=== PATIENT | male | born 1955 | race American Indian/Alaskan Native ===

== ENCOUNTER 2018-03-28 11:48 | Emergency (ER) | payer OTHER ==
--- NOTE | 2018-03-28 12:59 | Emergency Department Report ---
ED Neuro Deficit HPI - General Chief Complaint: Extremity Problem,Nontraumatic Stated Complaint: NUMBNESS/RIGHT SIDE Time Seen by Provider: 03/28/18 12:48 Source: patient Mode of arrival: Ambulatory Limitations: No Limitations - History of Present Illness Initial Comments: Patient is a 63-year-old [place] male who states that he's had some numbness and tingling to his right first through third digits for approximately 1 month. Patient states that approximately 2 months ago he did injure his shoulder but did not have the scene about. Patient is having progressively worsening numbness in the distribution above. Patient states there is no pain there is no weakness he feels a numb pins and needle sensation as though his arm was cold and even though it is not. - Related Data Home Medications: Previous Rx's Medication Instructions Recorded Last Taken Type methOCARBAMOL [Robaxin TAB] 500 mg PO Q6H PRN #15 tablet 03/28/18 Unknown Rx predniSONE [Deltasone] 20 mg PO QDAY #5 tab 03/28/18 Unknown Rx Allergies/Adverse Reactions: Allergies Allergy/AdvReac Type Severity Reaction Status Date / Time ibuprofen [From Motrin] AdvReac Shortness Verified 09/03/16 15:05 of Breath ED Review of Systems ROS: Stated complaint: NUMBNESS/RIGHT SIDE Other details as noted in HPI Comment: All other systems reviewed and negative ED Past Medical Hx - Past Medical History Previous Medical History?: Yes Hx Hypertension: Yes Hx Arthritis: Yes - Surgical History Past Surgical History?: Yes Additional Surgical History: Lymph Node - leg - Social History Smoking Status: Current Every Day Smoker Substance Use Type: Alcohol, Marijuana - Medications Home Medications: Home Medications Medication Instructions Recorded Confirmed Last Taken Type methOCARBAMOL [Robaxin TAB] 500 mg PO Q6H PRN #15 tablet 03/28/18 Unknown Rx predniSONE [Deltasone] 20 mg PO QDAY #5 tab 03/28/18 Unknown Rx ED Neuro Physical Exam - General Limitations: No Limitations General appearance: alert, in no apparent distress Suspected Stroke: No - Head Head exam: Present: atraumatic, normocephalic - Eye Eye exam: Present: normal appearance - ENT ENT exam: Present: mucous membranes moist - Neck Neck exam: Present: normal inspection - Respiratory Respiratory exam: Present: normal lung sounds bilaterally. Absent: respiratory distress - Cardiovascular Cardiovascular Exam: Present: regular rate, normal rhythm. Absent: systolic murmur, diastolic murmur, rubs, gallop - GI/Abdominal GI/Abdominal exam: Present: soft, normal bowel sounds - Rectal Rectal exam: Present: deferred - Extremities Exam Extremities exam: Present: normal inspection, other (patient's right upper extremity shows no physical abnormality. As a bounding pulse in the radial area. There is full range of motion to his hand wrist and shoulder.) - Back Exam Back exam: Present: normal inspection - Neurological Exam Neurological exam: Present: alert, oriented X3, CN II-XII intact, normal gait. Absent: motor sensory deficit - Psychiatric Psychiatric exam: Present: normal affect, normal mood - Skin Skin exam: Present: warm, dry, intact, normal color. Absent: rash ED Course Vital Signs 03/28/18 11:54 Temperature 98.6 F Pulse Rate 62 Respiratory 18 Rate Blood Pressure 168/90 O2 Sat by Pulse 97 Oximetry - Medical Decision Making Patient be started on anti-inflammatories for radiculopathy and will be discharged home with follow-up with orthopedics. Critical care attestation.: If time is entered above; I have spent that time in minutes in the direct care of this critically ill patient, excluding procedure time. ED Disposition Clinical Impression: Cervical radiculopathy Disposition: DC-01 TO HOME OR SELFCARE Is pt being admited?: No Does the pt Need Aspirin: No Condition: Stable Instructions: Cervical Radiculopathy (ED) Referrals: JAMIA BOUCHER MD [Staff Physician] - 3-5 Days
[2018-03-28 13:08] VITALS: BP 122/72
== END 2018-03-28 13:06 | disposition home or self-care (01) ==
LOC: ED 11:48
DX: M54.12 Radiculopathy, cervical region (principal); I10 Essential (primary) hypertension; M19.90 Unspecified osteoarthritis, unspecified site; F17.200 Nicotine dependence, unspecified, uncomplicated; F12.10 Cannabis abuse, uncomplicated; Z88.6 Allergy status to analgesic agent
CPT/HCPCS: 99282

== ENCOUNTER 2020-12-10 16:10 | Observation (INO) | payer MEDICARE, OTHER ==
[2020-12-10] MEDS ORDERED: SODIUM CHLORIDE 0.9% 500 ML 500 ML IV ONE (16:51)
--- NOTE | 2020-12-10 16:56 | Emergency Department Report ---
ED Syncope HPI - General Chief Complaint: Syncope Stated Complaint: SYNCOPE Time Seen by Provider: 12/10/20 16:33 Source: EMS Exam Limitations: other - History of Present Illness Initial Comments: 65-year-old male with a past medical history with arthritis, dementia, hypertension presents to the hospital with complaints of syncope versus seizure after smoking marijuana at home with family. Patient apparently was smoking marijuana, became unresponsive, had "convulsions", and CPR was initiated by family members. Upon EMS arrival patient was responsive but lethargic. He is currently responsive but lethargic and oriented to self only which appears to be his baseline secondary to dementia. He is not oriented to place or year. He denies any pain. He states he does not smoke marijuana daily. Family reported to EMS that he had a similar response to smoking marijuana over . Patient denies alcohol or other drug abuse. - Related Data Allergies/Adverse Reactions: Allergies ibuprofen [From Motrin] Adverse Reaction (Verified 12/10/20 16:14) Shortness of Breath Home Medications: Ambulatory Orders methOCARBAMOL [Robaxin TAB] 500 mg PO Q6H PRN #15 tablet 03/28/18 predniSONE [Deltasone] 20 mg PO QDAY #5 tab 03/28/18 Amoxicillin/Potassium Clav [Augmentin 875-125 Tablet] 1 each PO BID #20 tablet 07/19/18 Chlorhexidine Mouthwash [Peridex] 15 ml MM BID #1 bottle 07/19/18 Lidocaine Viscous 2% 5 ml MM Q3H PRN #120 udc 07/19/18 ED Review of Systems ROS: Stated complaint: SYNCOPE Other details as noted in HPI Comment: All other systems reviewed and negative ED Past Medical Hx - Past Medical History Hx Hypertension: Yes Hx Arthritis: Yes Hx Dementia: Yes - Surgical History Additional Surgical History: Lymph Node - leg - Social History Smoking Status: Unknown if ever smoked Substance Use Type: Marijuana - Medications Home Medications: Home Medications Medication Instructions Recorded Confirmed Last Taken Type methOCARBAMOL [Robaxin TAB] 500 mg PO Q6H PRN #15 tablet 03/28/18 Unknown Rx predniSONE [Deltasone] 20 mg PO QDAY #5 tab 03/28/18 Unknown Rx Amoxicillin/Potassium Clav 1 each PO BID #20 tablet 07/19/18 Unknown Rx [Augmentin 875-125 Tablet] Chlorhexidine Mouthwash [Peridex] 15 ml MM BID #1 bottle 07/19/18 Unknown Rx Lidocaine Viscous 2% 5 ml MM Q3H PRN #120 udc 07/19/18 Unknown Rx ED Physical Exam - General Limitations: Physical Limitation - Other Other exam information: General: No acute distress Head: Atraumatic Eyes: normal appearance, pupils equal reactive to light ENT: Moist mucous membranes Neck: Normal appearance, no midline tenderness Chest: Clear to auscultation bilaterally CV: Regular rate and rhythm Abdomen: Soft, normal bowel sounds, nontender, nondistended, no rebound or guarding Back: Normal inspection Extremity: Normal inspection, full range of motion Neuro: Lethargic but arousable to tactile stimulation O x 1 (typically only oriented to self as per family/EMS) no facial asymmetry, speech clear, no gross motor sensory deficit, [id number] function intact Psych: Appropriate behavior Skin: No rash ED Course Vital Signs 12/10/20 12/10/20 12/10/20 16:40 17:01 17:31 Temperature 97.8 F Pulse Rate 52 L 53 L 50 L Respiratory 14 13 12 Rate Blood Pressure 106/69 132/75 Blood Pressure 106/69 [Right] O2 Sat by Pulse 97 94 97 Oximetry 12/10/20 17:45 Temperature Pulse Rate 49 L Respiratory 12 Rate Blood Pressure 131/75 Blood Pressure [Right] O2 Sat by Pulse 96 Oximetry ED Medical Decision Making - Lab Data Result diagrams: 12/10/20 16:59 12/10/20 16:59 Lab Results 12/10/20 12/10/20 12/10/20 Range/Units 16:59 16:59 16:59 WBC 10.7 (4.5-11.0) K/mm3 RBC 4.35 (3.65-5.03) M/mm3 Hgb 12.4 (11.8-15.2) gm/dl Hct 37.3 (35.5-45.6) % MCV 86 (84-94) fl MCH 29 (28-32) pg MCHC 33 (32-34) % RDW 14.6 (13.2-15.2) % Plt Count 221 (140-440) K/mm3 Lymph % (Auto) 28.0 (13.4-35.0) % [place] % (Auto) 5.7 (0.0-7.3) % Eos % (Auto) 2.2 (0.0-4.3) % Baso % (Auto) 0.7 (0.0-1.8) % Lymph # (Auto) 3.0 (1.2-5.4) K/mm3 [place] # (Auto) 0.6 (0.0-0.8) K/mm3 Eos # (Auto) 0.2 (0.0-0.4) K/mm3 Baso # (Auto) 0.1 (0.0-0.1) K/mm3 Seg Neutrophils % 63.4 (40.0-70.0) % Seg Neutrophils # 6.8 (1.8-7.7) K/mm3 PT 12.7 (12.2-14.9) Sec. INR 0.97 (0.87-1.13) Sodium 140 (137-145) mmol/L Potassium 4.2 (3.6-5.0) mmol/L Chloride 101.6 (98-107) mmol/L Carbon Dioxide 29 (22-30) mmol/L Anion Gap 14 mmol/L BUN 10 (9-20) mg/dL Creatinine 1.1 (0.8-1.3) mg/dL Estimated GFR > 60 ml/min BUN/Creatinine Ratio 9 % Glucose 115 H (75-100) mg/dL Calcium 9.0 (8.4-10.2) mg/dL Magnesium 1.90 (1.7-2.3) mg/dL Troponin T < 0.010 (0.00-0.029) ng/mL Plasma/Serum Alcohol (0-0.07) % 12/10/ Range/Units 16:59 WBC (4.5-11.0) K/mm3 RBC (3.65-5.03) M/mm3 Hgb (11.8-15.2) gm/dl Hct (35.5-45.6) % MCV (84-94) fl MCH (28-32) pg MCHC (32-34) % RDW (13.2-15.2) % Plt Count (140-440) K/mm3 Lymph % (Auto) (13.4-35.0) % [place] % (Auto) (0.0-7.3) % Eos % (Auto) (0.0-4.3) % Baso % (Auto) (0.0-1.8) % Lymph # (Auto) (1.2-5.4) K/mm3 [place] # (Auto) (0.0-0.8) K/mm3 Eos # (Auto) (0.0-0.4) K/mm3 Baso # (Auto) (0.0-0.1) K/mm3 Seg Neutrophils % (40.0-70.0) % Seg Neutrophils # (1.8-7.7) K/mm3 PT (12.2-14.9) Sec. INR (0.87-1.13) Sodium (137-145) mmol/L Potassium (3.6-5.0) mmol/L Chloride (98-107) mmol/L Carbon Dioxide (22-30) mmol/L Anion Gap mmol/L BUN (9-20) mg/dL Creatinine (0.8-1.3) mg/dL Estimated GFR ml/min BUN/Creatinine Ratio % Glucose (75-100) mg/dL Calcium (8.4-10.2) mg/dL Magnesium (1.7-2.3) mg/dL Troponin T (0.00-0.029) ng/mL Plasma/Serum Alcohol < 0.01 (0-0.07) % - EKG Data -: EKG Interpreted by Me (lvh) EKG shows normal: sinus rhythm, ST-T waves (no stemi) Rate: bradycardia (54) - Radiology Data Radiology results: report reviewed CT head: No acute finding Chest x-ray: No acute findings - Medical Decision Making 65-year-old male presents to the hospital with syncope versus seizure after smoking marijuana. EKG reveals bradycardia without ST elevation ID. Labs unremarkable. Urine collection pending at disposition. Patient remains lethargic versus exhibiting signs of marijuana high in the ED but otherwise in no acute distress Critical Care Time: No Critical care attestation.: If time is entered above; I have spent that time in minutes in the direct care of this critically ill patient, excluding procedure time. ED Disposition Clinical Impression: Syncope, Marijuana use, Dementia, Bradycardia Disposition: OP ADMIT IP TO THIS HOSP Is pt being admited?: Yes Condition: Stable Instructions: Syncope (ED) Time of Disposition: 18:28 (Dr. Aiken/[facility])
--- NOTE | 2020-12-10 17:23 | XRay Report ---
CHEST 1 VIEW INDICATION: syncope vs seizure. COMPARISON: None. FINDINGS: Support devices: None. Heart: Normal. Lungs/Pleura: No acute pulmonary or pleural findings. IMPRESSION: 1. No acute findings. Signer Name: Graham Jaffe MD Signed: 12/10/2020 5:18 PM Workstation Name: [id number]
--- NOTE | 2020-12-10 17:34 | Cat Scan Report ---
CT BRAIN: 12/10/2020 INDICATION / CLINICAL INFORMATION: syncope vs seizure. COMPARISON: None available. FINDINGS: BRAIN/INTRACRANIAL STRUCTURES: Unenhanced CT images of the brain demonstrate no evidence of acute abn ormality. Ventricles and sulci are prominent in size, consistent with diffuse cerebral atrophy. Extensive chronic white matter hypoattenuation is present throughout the cerebral hemispheric white m atter, consistent with prominent chronic small vessel ischemic change. There is evidence of old lacunar changes in the right basal ganglia. There is no evidence of hemorrhage or mass. There are no abnormal extra-axial fluid collections. EXTRACRANIAL STRUCTURES: Unremarkable. IMPRESSION: No acute abnormality. Chronic and age-related changes. All CT scans at this location are performed using dose reduction to ALARA by means of automated expos ure control. Signer Name: Preet Her MD Signed: 12/10/2020 5:30 PM Workstation Name: [id number]
[2020-12-10 17:50] LABS: Hematocrit 37.3 % (35.5-45.6); Hemoglobin 12.4 gm/dl (11.8-15.2); Mean Corpuscular Volume 86 fl (84-94); Red Blood Count 4.35 M/mm3 (3.65-5.03)
[2020-12-10 17:51] LABS: Basophils % (Auto) 0.7 % (0.0-1.8); Eosinophils % (Auto) 2.2 % (0.0-4.3); Mean Corpuscular HGB Conc 33 % (32-34); Mean Platelet Volume 8.3 fl (6-12); Monocytes % (Auto) 5.7 % (0.0-7.3); Platelet Count 221 K/mm3 (140-440); Red Cell Distribution Width 14.6 % (13.2-15.2)
[2020-12-10 17:52] LABS: Basophils # (Auto) 0.1 K/mm3 (0.0-0.1); Eosinophils # (Auto) 0.2 K/mm3 (0.0-0.4); Monocytes # (Auto) 0.6 K/mm3 (0.0-0.8)
[2020-12-10 17:57] LABS: BUN/Creatinine Ratio 9; Blood Urea Nitrogen 10 mg/dL (9-20); Hemolysis Index 4
[2020-12-10 17:58] LABS: INR 0.97 (0.87-1.13)
[2020-12-10 20:20] LABS: Bilirubin,Urine NEG (Negative); Blood,Urine NEG (Negative); Color,Urine Yellow (Yellow); Mucus,Urine FEW /HPF; Protein,Urine <15 mg/dL mg/dL (Negative); Urobilinogen,Urine < 2.0 mg/dL (<2.0)
[2020-12-10 20:22] LABS: Amphetamine Screen,Urine Negative; Benzodiazepines Screen,Urine Negative; Cocaine Screen,Urine Negative; Methadone Screen,Urine Negative; Opiate Screen,Urine Negative
[2020-12-10 20:33] LABS: Cannabinoid Screen,Urine Positive
--- NOTE | 2020-12-11 01:06 | History and Physical Report ---
History of Present Illness Date of examination: 12/10/20 Date of admission: 12/10/20 18:29 Chief complaint: Passed out after smoking marijuana this a.m. Possible seizures History of present illness: 65-year-old male with history of hypertension, osteoarthritis and early dementia brought into the hospital for passing out. Family feels that he may have had seizures. Patient was smoking marijuana at home with family. Became unresponsive and disoriented after waking up patient is oriented to self but not oriented to place or year family reports that patient had a similar response while smoking marijuana on gi. - Past Medical History Hx Hypertension: Yes Hx Arthritis: Yes Hx Dementia: Yes - Surgical History Additional Surgical History: Lymph Node - leg - Social History Smoking Status: Unknown if ever smoked Substance Use Type: Marijuana - Medications Home Medications: Home Medications Medication Instructions Recorded Confirmed Last Taken Type methOCARBAMOL [Robaxin TAB] 500 mg PO Q6H PRN #15 tablet 03/28/18 Unknown Rx predniSONE [Deltasone] 20 mg PO QDAY #5 tab 03/28/18 Unknown Rx Amoxicillin/Potassium Clav 1 each PO BID #20 tablet 07/19/18 Unknown Rx [Augmentin 875-125 Tablet] Chlorhexidine Mouthwash [Peridex] 15 ml MM BID #1 bottle 07/19/18 Unknown Rx Lidocaine Viscous 2% 5 ml MM Q3H PRN #120 udc 07/19/18 Unknown Rx Review of Systems ROS: Constitutional no weight loss or weight gain no fever or chills HEENT no sore throat no post nasal drip no diplopia Neck no neck stiffness no lymph gland enlargement Chest and lungs no shortness of breath cough or wheezing CVS no chest pain no diaphoresis no palpitations GI no nausea no vomiting no diarrhea Genitourinary system no dysuria no flank pain Musculoskeletal system no muscle pains no joint pains [employer] passed out with altered sensorium after recovering Skin no rash no itching Psychiatric no depression no homicidal or suicidal tendencies Hematologic no lymphedema or bruising Endocrine no polydipsia no polyuria no cold intolerance no heat intolerance Medications and Allergies Allergies Allergy/AdvReac Type Severity Reaction Status Date / Time ibuprofen [From Motrin] AdvReac Shortness Verified 12/10/20 16:14 of Breath Home Medications Medication Instructions Recorded Confirmed Last Taken Type methOCARBAMOL [Robaxin TAB] 500 mg PO Q6H PRN #15 tablet 03/28/18 Unknown Rx predniSONE [Deltasone] 20 mg PO QDAY #5 tab 03/28/18 Unknown Rx Amoxicillin/Potassium Clav 1 each PO BID #20 tablet 07/19/18 Unknown Rx [Augmentin 875-125 Tablet] Chlorhexidine Mouthwash [Peridex] 15 ml MM BID #1 bottle 07/19/18 Unknown Rx Lidocaine Viscous 2% 5 ml MM Q3H PRN #120 udc 07/19/18 Unknown Rx Exam - Constitutional Vitals: Temp Pulse Resp BP Pulse Ox 98.0 F 57 L 18 188/98 96 12/11/20 00:08 12/11/20 00:08 12/11/20 00:08 12/11/20 00:08 12/11/20 00:08 General appearance: Present: no acute distress, well-nourished - EENT Eyes: Present: PERRL ENT: hearing intact, clear oral mucosa - Neck Neck: Present: supple, normal ROM - Respiratory Respiratory effort: normal Respiratory: bilateral: CTA - Cardiovascular Heart rate: 78 Rhythm: regular Heart Sounds: Present: S1 & S2. Absent: rub, click - Extremities Extremities: pulses symmetrical, No edema Peripheral Pulses: within normal limits - Abdominal General gastrointestinal: Present: soft, non-tender, non-distended, normal bowel sounds Male genitourinary: Present: normal - Rectal Rectal Exam: deferred - Integumentary Integumentary: Present: clear, warm, dry - Musculoskeletal Musculoskeletal: gait normal, strength equal bilaterally - Psychiatric Psychiatric: appropriate mood/affect, intact judgment & insight - Neurologic Neurologic: CNII-XII intact, moves all extremities - Allied Health Allied health notes reviewed: nursing, case management HEART Score - HEART Score History: Moderately suspicious Age: > 65 Risk factors: 1-2 risk factors Troponin: Troponin T < 0.010 ng/mL (0.00-0.029) 12/10/20 16:59 Troponin: 1-3x normal limit - Critical Actions Critical Actions: 4-6 pts:12-16.6% risk of adverse cardiac event. Should be ad mitted Results - Labs CBC & Chem 7: 12/11/20 01:17 12/11/20 01:17 Labs: Laboratory Last Values WBC 10.7 K/mm3 (4.5-11.0) 12/10/20 16:59 RBC 4.35 M/mm3 (3.65-5.03) 12/10/20 16:59 Hgb 12.4 gm/dl (11.8-15.2) 12/10/20 16:59 Hct 37.3 % (35.5-45.6) 12/10/20 16:59 MCV 86 fl (84-94) 12/10/20 16:59 MCH 29 pg (28-32) 12/10/20 16:59 MCHC 33 % (32-34) 12/10/20 16:59 RDW 14.6 % (13.2-15.2) 12/10/20 16:59 Plt Count 221 K/mm3 (140-440) 12/10/20 16:59 Lymph % (Auto) 28.0 % (13.4-35.0) 12/10/20 16:59 [place] % (Auto) 5.7 % (0.0-7.3) 12/10/20 16:59 Eos % (Auto) 2.2 % (0.0-4.3) 12/10/20 16:59 Baso % (Auto) 0.7 % (0.0-1.8) 12/10/20 16:59 Lymph # (Auto) 3.0 K/mm3 (1.2-5.4) 12/10/20 16:59 [place] # (Auto) 0.6 K/mm3 (0.0-0.8) 12/10/20 16:59 Eos # (Auto) 0.2 K/mm3 (0.0-0.4) 12/10/20 16:59 Baso # (Auto) 0.1 K/mm3 (0.0-0.1) 12/10/20 16:59 Seg Neutrophils % 63.4 % (40.0-70.0) 12/10/20 16:59 Seg Neutrophils # 6.8 K/mm3 (1.8-7.7) 12/10/20 16:59 PT 12.7 Sec. (12.2-14.9) 12/10/20 16:59 INR 0.97 (0.87-1.13) 12/10/20 16:59 Sodium 140 mmol/L (137-145) 12/10/20 16:59 Potassium 4.2 mmol/L (3.6-5.0) 12/10/20 16:59 Chloride 101.6 mmol/L (98-107) 12/10/20 16:59 Carbon Dioxide 29 mmol/L (22-30) 12/10/20 16:59 Anion Gap 14 mmol/L 12/10/20 16:59 BUN 10 mg/dL (9-20) 12/10/20 16:59 Creatinine 1.1 mg/dL (0.8-1.3) 12/10/20 16:59 Estimated GFR > 60 ml/min 12/10/20 16:59 BUN/Creatinine Ratio 9 % 12/10/20 16:59 Glucose 115 mg/dL (75-100) H 12/10/20 16:59 Calcium 9.0 mg/dL (8.4-10.2) 12/10/20 16:59 Magnesium 1.90 mg/dL (1.7-2.3) 12/10/20 16:59 Troponin T < 0.010 ng/mL (0.00-0.029) 12/10/20 16:59 Urine Color Yellow (Yellow) 12/10/20 19:59 Urine Turbidity Clear (Clear) 12/10/20 19:59 Urine pH 7.0 (5.0-7.0) 12/10/20 19:59 Ur Specific [place] 1.006 (1.003-1.030) 12/10/20 19:59 Urine Protein <15 mg/dl mg/dL (Negative) 12/10/20 19:59 Urine Glucose (UA) Neg mg/dL (Negative) 12/10/20 19:59 Urine Ketones Neg mg/dL (Negative) 12/10/20 19:59 Urine Blood Neg (Negative) 12/10/20 19:59 Urine Nitrite Neg (Negative) 12/10/20 19:59 Urine Bilirubin Neg (Negative) 12/10/20 19:59 Urine Urobilinogen < 2.0 mg/dL (<2.0) 12/10/20 19:59 Ur Leukocyte Esterase Neg (Negative) 12/10/20 19:59 Urine WBC (Auto) 2.0 /HPF (0.0-6.0) 12/10/20 19:59 Urine RBC (Auto) 1.0 /HPF (0.0-6.0) 12/10/20 19:59 Urine Mucus Few /HPF 12/10/20 19:59 Urine Opiates Screen Negative 12/10/20 19:59 Urine Methadone Screen Negative 12/10/20 19:59 Ur Barbiturates Screen Negative 12/10/20 19:59 Ur Phencyclidine Scrn Negative 12/10/20 19:59 Ur Amphetamines Screen Negative 12/10/20 19:59 U Benzodiazepines Scrn Negative 12/10/20 19:59 Urine Cocaine Screen Negative 12/10/20 19:59 U Marijuana (THC) Screen Positive 12/10/20 19:59 Drugs of Abuse Note Disclamer 12/10/20 19:59 Plasma/Serum Alcohol < 0.01 % (0-0.07) 12/10/20 16:59 - Imaging and Cardiology EKG: report reviewed (Sinus rhythm no acute ST-T wave changes) Imaging and Cardiology: Head CT No acute abnormalities Chronic and age-related changes Chest x-ray No acute findings Assessment and Plan Advance Directives: Yes (Full code) VTE prophylaxis?: Chemical Plan of care discussed with patient/family: Yes - Patient Problems (1) Acute encephalopathy Current Visit: Yes Status: Acute Plan to address problem: Transient in nature Possible drug-induced secondary to marijuana (2) Bradycardia Current Visit: Yes Status: Acute Plan to address problem: Symptomatic Cardiology consulted (3) Autonomic dysfunction Current Visit: Yes Status: Acute Plan to address problem: Probable syncope secondary to marijuana We will get echocardiogram for ejection fraction and carotid duplex scan to rule out any carotid stenosis (4) Hypertension Current Visit: Yes Status: Chronic Qualifiers: Hypertension type: essential hypertension Qualified Code(s): I10 - Essential (primary) hypertension Plan to address problem: Continue antihypertensives (5) Marijuana use Current Visit: Yes Status: Chronic Plan to address problem: Patient counseled (6) DVT prophylaxis Current Visit: Yes Status: Acute Plan to address problem: On heparin GI prophylaxis
[2020-12-11] MEDS ORDERED: METOCLOPRAMIDE 10 MG/2 ML INJ IV PRN (01:09)
[2020-12-11] MEDS ORDERED: oxyCODONE /ACETAMINOPHEN 5-325MG TAB PO PRN (01:09)
[2020-12-11] MEDS ORDERED: ONDANSETRON 4 MG/2 ML INJ IV PRN (01:09)
[2020-12-11] MEDS ORDERED: ACETAMINOPHEN 325 MG TAB PO PRN (01:09)
[2020-12-11] MEDS ORDERED: MORPHINE 2 MG/1 ML INJ IV PRN (01:09)
[2020-12-11] MEDS ORDERED: SODIUM CHLORIDE 0.9% 1000 ML 1,000 ML IV SCH (01:15)
[2020-12-11] MEDS: hydrALAZINE 20 MG/1 ML INJ IV PRN ×2 (01:41→09:14)
[2020-12-11 01:51] LABS: Basophils # (Auto) 0.1 K/mm3 (0.0-0.1); Eosinophils # (Auto) 0.1 K/mm3 (0.0-0.4); Eosinophils % (Auto) 0.8 % (0.0-4.3); Hematocrit 36.9 % (35.5-45.6); Hemoglobin 12.2 gm/dl (11.8-15.2); Lymphocytes # (Auto) 3.2 K/mm3 (1.2-5.4); Lymphocytes % (Auto) 26.9 % (13.4-35.0); Mean Corpuscular HGB Conc 33 % (32-34); Mean Corpuscular Volume 85 fl (84-94); Monocytes # (Auto) 0.8 K/mm3 (0.0-0.8); Monocytes % (Auto) 6.5 % (0.0-7.3); Platelet Count 208 K/mm3 (140-440); Red Blood Count 4.32 M/mm3 (3.65-5.03); Red Cell Distribution Width 14.6 % (13.2-15.2)
[2020-12-11 02:14] LABS: Alanine Aminotransferase 5 units/L (7-56); Albumin 3.7 g/dL (3.9-5); BUN/Creatinine Ratio 13; Blood Urea Nitrogen 10 mg/dL (9-20); Calcium 8.7 mg/dL (8.4-10.2); Hemolysis Index 2
--- NOTE | 2020-12-11 08:50 | Progress Note ---
Assessment and Plan Assessment and plan: --Symptomatic bradycardia; Patient had heart rate ranging between 49-59 intermittently since admission Patient was admitted with syncopal episode, not on any AV belgica blocking agents Closely monitor, cardiology consulted Follow echocardiogram --History of syncopal episode/autonomic dysfunction Versus marijuana related Fall precautions, syncope work-up in progress Follow carotid Doppler, echocardiogram Patient will be advised to follow neurologist as outpatient --Hypertension; moderate control Continue current antihypertensives, avoid beta-blockers --History of substance abuse/marijuana. Strongly advised to quit recreational drug use --DVT prophylaxis; Heparin We will closely monitor the patient and adjust management as needed Physical therapy evaluation and treatment Follow cardiology recommendations Possible discharge a.m. if stable History Interval history: Patient was admitted with syncopal episode, reports after he had marijuana Syncope work-up is in progress No new episodes of syncope since admission Patient feels better No new complaints Vital signs reviewed Hospitalist Physical - Constitutional Vitals: Temp Pulse Resp BP Pulse Ox 98.4 F 71 18 171/99 95 12/11/20 03:12 12/11/20 03:12 12/11/20 03:12 12/11/20 03:12 12/11/20 03:12 General appearance: Present: no acute distress, well-nourished - EENT Eyes: Present: PERRL, EOM intact - Neck Neck: Present: supple, normal ROM - Respiratory Respiratory effort: normal Respiratory: bilateral: diminished, negative: rales, rhonchi, wheezing - Cardiovascular Rhythm: regular Heart Sounds: Present: S1 & S2 - Extremities Extremities: no ischemia, No edema - Abdominal General gastrointestinal: soft, non-tender, non-distended, normal bowel sounds - Integumentary Integumentary: Present: clear, warm - Psychiatric Psychiatric: appropriate mood/affect, cooperative - Neurologic Neurologic: CNII-XII intact, moves all extremities HEART Score - HEART Score Age: > 65 Risk factors: 1-2 risk factors Troponin: Troponin T < 0.010 ng/mL (0.00-0.029) 12/10/20 16:59 Troponin: 1-3x normal limit - Critical Actions Critical Actions: 4-6 pts:12-16.6% risk of adverse cardiac event. Should be admitted Results - Labs CBC & Chem 7: 12/11/20 01:17 12/11/20 01:17 Labs: Laboratory Last Values WBC 11.8 K/mm3 (4.5-11.0) H 12/11/20 01:17 RBC 4.32 M/mm3 (3.65-5.03) 12/11/20 01:17 Hgb 12.2 gm/dl (11.8-15.2) 12/11/20 01:17 Hct 36.9 % (35.5-45.6) 12/11/20 01:17 MCV 85 fl (84-94) 12/11/20 01:17 MCH 28 pg (28-32) 12/11/20 01:17 MCHC 33 % (32-34) 12/11/20 01:17 RDW 14.6 % (13.2-15.2) 12/11/20 01:17 Plt Count 208 K/mm3 (140-440) 12/11/20 01:17 Lymph % (Auto) 26.9 % (13.4-35.0) 12/11/20 01:17 [place] % (Auto) 6.5 % (0.0-7.3) 12/11/20 01:17 Eos % (Auto) 0.8 % (0.0-4.3) 12/11/20 01:17 Baso % (Auto) 1.0 % (0.0-1.8) 12/11/20 01:17 Lymph # (Auto) 3.2 K/mm3 (1.2-5.4) 12/11/20 01:17 [place] # (Auto) 0.8 K/mm3 (0.0-0.8) 12/11/20 01:17 Eos # (Auto) 0.1 K/mm3 (0.0-0.4) 12/11/20 01:17 Baso # (Auto) 0.1 K/mm3 (0.0-0.1) 12/11/20 01:17 Seg Neutrophils % 64.8 % (40.0-70.0) 12/11/20 01:17 Seg Neutrophils # 7.6 K/mm3 (1.8-7.7) 12/11/20 01:17 PT 12.7 Sec. (12.2-14.9) 12/10/20 16:59 INR 0.97 (0.87-1.13) 12/10/20 16:59 Sodium 141 mmol/L (137-145) 12/11/20 01:17 Potassium 4.2 mmol/L (3.6-5.0) 12/11/20 01:17 Chloride 106.6 mmol/L (98-107) 12/11/20 01:17 Carbon Dioxide 26 mmol/L (22-30) 12/11/20 01:17 Anion Gap 13 mmol/L 12/11/20 01:17 BUN 10 mg/dL (9-20) 12/11/20 01:17 Creatinine 0.8 mg/dL (0.8-1.3) 12/11/20 01:17 Estimated GFR > 60 ml/min 12/11/20 01:17 BUN/Creatinine Ratio 13 % 12/11/20 01:17 Glucose 82 mg/dL (75-100) 12/11/20 01:17 Hemoglobin A1c 5.2 % (4-6) 12/11/20 01:17 Calcium 8.7 mg/dL (8.4-10.2) 12/11/20 01:17 Magnesium 1.90 mg/dL (1.7-2.3) 12/10/20 16:59 Total Bilirubin < 0.20 mg/dL (0.1-1.2) 12/11/20 01:17 AST 9 units/L (5-40) 12/11/20 01:17 ALT 5 units/L (7-56) L 12/11/20 01:17 Alkaline Phosphatase 67 units/L (35-129) 12/11/20 01:17 Troponin T < 0.010 ng/mL (0.00-0.029) 12/10/20 16:59 Total Protein 6.8 g/dL (6.3-8.2) 12/11/20 01:17 Albumin 3.7 g/dL (3.9-5) L 12/11/20 01:17 Albumin/Globulin Ratio 1.2 % 12/11/20 01:17 Urine Color Yellow (Yellow) 12/10/20 19:59 Urine Turbidity Clear (Clear) 12/10/20 19:59 Urine pH 7.0 (5.0-7.0) 12/10/20 19:59 Ur Specific [place] 1.006 (1.003-1.030) 12/10/20 19:59 Urine Protein <15 mg/dl mg/dL (Negative) 12/10/20 19:59 Urine Glucose (UA) Neg mg/dL (Negative) 12/10/20 19:59 Urine Ketones Neg mg/dL (Negative) 12/10/20 19:59 Urine Blood Neg (Negative) 12/10/20 19:59 Urine Nitrite Neg (Negative) 12/10/20 19:59 Urine Bilirubin Neg (Negative) 12/10/20 19:59 Urine Urobilinogen < 2.0 mg/dL (<2.0) 12/10/20 19:59 Ur Leukocyte Esterase Neg (Negative) 12/10/20 19:59 Urine WBC (Auto) 2.0 /HPF (0.0-6.0) 12/10/20 19:59 Urine RBC (Auto) 1.0 /HPF (0.0-6.0) 12/10/20 19:59 Urine Mucus Few /HPF 12/10/20 19:59 Urine Opiates Screen Negative 12/10/20 19:59 Urine Methadone Screen Negative 12/10/20 19:59 Ur Barbiturates Screen Negative 12/10/20 19:59 Ur Phencyclidine Scrn Negative 12/10/20 19:59 Ur Amphetamines Screen Negative 12/10/20 19:59 U Benzodiazepines Scrn Negative 12/10/20 19:59 Urine Cocaine Screen Negative 12/10/20 19:59 U Marijuana (THC) Screen Positive 12/10/20 19:59 Drugs of Abuse Note Disclamer 12/10/20 19:59 Plasma/Serum Alcohol < 0.01 % (0-0.07) 12/10/20 16:59 Vaughn/IV: Voiding Method Urinal Active Medications - Current Medications Current Medications: Generic Name Dose Route Start Last Admin Trade Name Freq PRN Reason Stop Dose Admin Acetaminophen 650 mg 12/11/20 01:09 Acetaminophen 325 Mg Tab PO Q4H PRN Pain MILD(1-3)/Fever >100.5/WILKINSON Famotidine 20 mg 12/11/20 10:00 Famotidine 20 Mg/2 Ml Inj IV BID RONY Heparin Sodium (Porcine) 5,000 unit 12/11/20 10:00 Heparin 5,000 Unit/1 Ml Vial SUB-Q Q12HR [facility] Hydralazine HCl 10 mg 12/11/20 01:27 12/11/20 01:41 Hydralazine 20 Mg/1 Ml Inj IV 10 mg Q6H PRN Administration Hypertension Sodium Chloride 1,000 mls @ 100 mls/hr 12/11/20 01:15 Nacl 0.9% 1000 Ml IV DIRECT RONY Metoclopramide HCl 10 mg 12/11/20 01:09 Metoclopramide 10 Mg/2 Ml Inj IV Q6H PRN Nausea And Vomiting Morphine Sulfate 2 mg 12/11/20 01:09 Morphine 2 Mg/1 Ml Inj IV Q4H PRN Pain, Moderate (4-6) Ondansetron HCl 4 mg 12/11/20 01:09 Ondansetron 4 Mg/2 Ml Inj IV Q8H PRN Nausea And Vomiting Oxycodone/Acetaminophen 1 tab 12/11/20 01:09 Oxycodone /Acetaminophen 5-325mg Tab PO Q6H PRN Pain, Moderate (4-6) Sodium Chloride 10 ml 12/11/20 10:00 Sodium Chloride 0.9% 10 Ml Flush Syringe IV BID RONY Sodium Chloride 10 ml 12/11/20 01:09 12/11/20 01:41 Sodium Chloride 0.9% 10 Ml Flush Syringe IV 10 ml PRN PRN Administration LINE FLUSH
[2020-12-11] MEDS: FAMOTIDINE 20 MG/2 ML INJ IV SCH ×2 (09:14→21:38)
[2020-12-11] MEDS: HEPARIN 5,000 UNIT/1 ML VIAL SUB-Q SCH ×2 (09:22→21:38)
--- NOTE | 2020-12-11 09:52 | Consultation ---
History of Present Illness Consult date: 12/11/20 Consult reason: bradycardia History of present illness: 65-year old M who was brought to this hospital with reports of syncope following marijuana use. Head CT scan reports no acute findings and a chest x-ray done is negative. A cardiac consultation has been requested for abnormal ECG. An ECG done on presentation is sinus bradycardia, rate 54. There were no significant stanislav-arrhythmias reported. Currently on telemetry, he is normal sinus rhythm, rate ranging in the 60's. There were no report of chest pain, unusual shortness of breath, or dizziness. Patient gives a history of hypertension but is unsure of home medications. Denies prior cardiac history. May 2017 an echocardiogram showed a normal left ventricular systolic function, ejection raction 50-55%. Past History Past Medical History: hypertension Social history: smoking Medications and Allergies Allergies Allergy/AdvReac Type Severity Reaction Status Date / Time ibuprofen [From Motrin] AdvReac Shortness Verified 12/10/20 16:14 of Breath Home Medications Medication Instructions Recorded Confirmed Last Taken Type methOCARBAMOL [Robaxin TAB] 500 mg PO Q6H PRN #15 tablet 03/28/18 Unknown Rx predniSONE [Deltasone] 20 mg PO QDAY #5 tab 03/28/18 Unknown Rx Amoxicillin/Potassium Clav 1 each PO BID #20 tablet 07/19/18 Unknown Rx [Augmentin 875-125 Tablet] Chlorhexidine Mouthwash [Peridex] 15 ml MM BID #1 bottle 07/19/18 Unknown Rx Lidocaine Viscous 2% 5 ml MM Q3H PRN #120 udc 07/19/18 Unknown Rx Active Meds: Active Medications Acetaminophen (Acetaminophen 325 Mg Tab) 650 mg PO Q4H PRN PRN Reason: Pain MILD(1-3)/Fever >100.5/[place]SON Famotidine (Famotidine 20 Mg/2 Ml Inj) 20 mg IV BID [facility] Last Admin: 12/11/20 09:14 Dose: 20 mg Documented by: Heparin Sodium (Porcine) (Heparin 5,000 Unit/1 Ml Vial) 5,000 unit SUB-Q Q12HR [facility] Last Admin: 12/11/20 09:22 Dose: 5,000 unit Documented by: Hydralazine HCl (Hydralazine 20 Mg/1 Ml Inj) 10 mg IV Q6H PRN PRN Reason: Hypertension Last Admin: 12/11/20 09:14 Dose: 10 mg Documented by: Sodium Chloride (Nacl 0.9% 1000 Ml) 1,000 mls @ 100 mls/hr IV DIRECT RONY Metoclopramide HCl (Metoclopramide 10 Mg/2 Ml Inj) 10 mg IV Q6H PRN PRN Reason: Nausea And Vomiting Morphine Sulfate (Morphine 2 Mg/1 Ml Inj) 2 mg IV Q4H PRN PRN Reason: Pain, Moderate (4-6) Ondansetron HCl (Ondansetron 4 Mg/2 Ml Inj) 4 mg IV Q8H PRN PRN Reason: Nausea And Vomiting Oxycodone/Acetaminophen (Oxycodone /Acetaminophen 5-325mg Tab) 1 tab PO Q6H PRN PRN Reason: Pain, Moderate (4-6) Sodium Chloride (Sodium Chloride 0.9% 10 Ml Flush Syringe) 10 ml IV BID RONY Last Admin: 12/11/20 09:15 Dose: 10 ml Documented by: Sodium Chloride (Sodium Chloride 0.9% 10 Ml Flush Syringe) 10 ml IV PRN PRN PRN Reason: LINE FLUSH Last Admin: 12/11/20 01:41 Dose: 10 ml Documented by: Review of Systems Cardiovascular: no chest pain, no palpitations, no rapid/irregular heart beat, no edema, no lightheadedness, no shortness of breath Physical Examination Vital Signs Temp Pulse Resp BP Pulse Ox 97.8 F 52 L 14 106/69 97 12/10/20 16:40 12/10/20 16:40 12/10/20 16:40 12/10/20 16:40 12/10/20 16:40 General appearance: no acute distress HEENT: Positive: PERRL Neck: Positive: trachea midline Cardiac: Positive: Reg Rate and Rhythm Lungs: Positive: Normal Breath Sounds Neuro: Positive: Grossly Intact Extremities: Absent: edema Results 12/11/20 01:17 12/11/20 01:17 Cardiac Enzymes 12/11/20 Range/Units 01:17 AST 9 (5-40) units/L Coagulation 12/10/20 Range/Units 16:59 PT 12.7 (12.2-14.9) Sec. INR 0.97 (0.87-1.13) CBC 12/10/20 12/11/20 Range/Units 16:59 01:17 WBC 10.7 11.8 H (4.5-11.0) K/mm3 RBC 4.35 4.32 (3.65-5.03) M/mm3 Hgb 12.4 12.2 (11.8-15.2) gm/dl Hct 37.3 36.9 (35.5-45.6) % Plt Count 221 208 (140-440) K/mm3 Lymph # (Auto) 3.0 3.2 (1.2-5.4) K/mm3 [place] # (Auto) 0.6 0.8 (0.0-0.8) K/mm3 Eos # (Auto) 0.2 0.1 (0.0-0.4) K/mm3 Baso # (Auto) 0.1 0.1 (0.0-0.1) K/mm3 Comprehensive Metabolic Panel 12/10/20 12/11/20 Range/Units 16:59 01:17 Sodium 140 141 (137-145) mmol/L Potassium 4.2 4.2 (3.6-5.0) mmol/L Chloride 101.6 106.6 (98-107) mmol/L Carbon Dioxide 29 26 (22-30) mmol/L BUN 10 10 (9-20) mg/dL Creatinine 1.1 0.8 (0.8-1.3) mg/dL Glucose 115 H 82 (75-100) mg/dL Calcium 9.0 8.7 (8.4-10.2) mg/dL AST 9 (5-40) units/L ALT 5 L (7-56) units/L Alkaline Phosphatase 67 (35-129) units/L Total Protein 6.8 (6.3-8.2) g/dL Albumin 3.7 L (3.9-5) g/dL Assessment and Plan - Patient Problems (1) Syncope Current Visit: Yes Status: Acute (2) Bradycardia Current Visit: Yes Status: Acute (3) Hypertension Current Visit: Yes Status: Chronic Qualifiers: Qualified Code(s): I10 - Essential (primary) hypertension
--- NOTE | 2020-12-11 10:57 | Vascular Lab Report ---
BILATERAL CAROTID DOPPLER ULTRASOUND INDICATION : Syncope and autonomic imbalance TECHNIQUE: Grayscale and color Doppler imaging performed through the neck. COMPARISON: None FINDINGS: Right: There is minimal partially calcified plaques in the distal CCA and bulb. Peak systolic veloc ity in the CCA is 102 cm/s with end-diastolic velocity of 29 cm/s. Peak systolic velocity in the prox imal ICA is 119 cm/s with end-diastolic velocity of 47 cm/s. ICA to CCA ratio is less than 2. There i s antegrade flow in the ECA and the vertebral artery. Left: There is mild intimal hyperplasia in the CCA. Peak systolic velocity in the CCA is 93 cm/s with end-diastolic velocity of 25 cm/s. Peak systolic velocity in the proximal ICA is 90 cm/s with end-di astolic velocity of 28 cm/s. ICA to CCA ratio is less than 2. There is antegrade flow in the ECA and the vertebral artery. IMPRESSION: No hemodynamically significant stenosis by NASCET criteria. Doppler velocities indicate l ess than 50% luminal narrowing bilaterally. Signer Name: Jaden Severino Jr, MD Signed: 12/11/2020 10:52 AM Workstation Name: [id number]
--- NOTE | 2020-12-11 11:21 | Electrocardiograph Report ---
[facility] Test Date: 2020-12-10 Test Time: 18:19:13 Pat Name: CE RASCON Department: Room: A468 1 Gender: M Tourist Information Assistant: NIK : [id number] Requested By: MODESTA MELENDEZ Order Number: [id number] Reading MD: Martell Duggan Measurements Intervals [facility] Rate: 54 P: 56 HI: 170 QRS: -9 QRSD: 88 T: 18 QT: 482 QTc: 457 Interpretive Statements Sinus bradycardia Probable left atrial enlargement Probable left ventricular hypertrophy No previous ECG available for comparison Electronically Signed On 12-11-2020 8:21:04 PDT by Martell Duggan
[2020-12-11] MEDS: NIFEdipine XL 60 MG TAB PO SCH (12:59)
[2020-12-11] MEDS: hydrALAZINE 25 MG TAB PO SCH (21:38)
[2020-12-12] MEDS: hydrALAZINE 25 MG TAB PO SCH ×2 (05:22→14:22)
--- NOTE | 2020-12-12 08:10 | Event Note ---
Date: 12/11/20 I called patient's daughter Ms. Valentín Cortés at [phone] and discussed about the patient's diagnosis, tests and reports treatment plan, I also explained that patient's work-up so far is negative, we will check orthostats, PT evaluation and recommendations, and possibly discharge tomorrow If stable. She reported that she would come and pick him up when he is ready for discharge. I answered all her questions.
[2020-12-12 08:26] LABS: BUN/Creatinine Ratio 13; Blood Urea Nitrogen 12 mg/dL (9-20); Calcium 9.1 mg/dL (8.4-10.2)
[2020-12-12 08:27] LABS: Hemolysis Index 1
[2020-12-12] MEDS: HEPARIN 5,000 UNIT/1 ML VIAL SUB-Q SCH (09:17)
[2020-12-12] MEDS: FAMOTIDINE 20 MG/2 ML INJ IV SCH (09:17)
[2020-12-12] MEDS: NIFEdipine XL 60 MG TAB PO SCH (09:17)
--- NOTE | 2020-12-12 10:19 | Progress Note ---
Assessment and Plan - Patient Problems (1) Syncope Current Visit: Yes Status: Acute Plan to address problem: Brief syncopal episode which occurred while he was smoking marijuana. Recommendations: Presentation appears consistent with a vasovagal response to his use of illicit substance. Abstain from further use of marijuana. Will recommend an outpatient event monitor. Otherwise, no further cardiac work-up is indicated at this time. (2) Bradycardia Current Visit: Yes Status: Acute Plan to address problem: Resolved. No bradyarrhythmias seen on telemetry. (3) Hypertension Current Visit: Yes Status: Chronic Qualifiers: Qualified Code(s): I10 - Essential (primary) hypertension Subjective Date of service: 12/12/20 Interval history: Patient has no cardiac complaints. Objective Vital Signs Temp Pulse Resp BP Pulse Ox 12/12/20 09:14 91 H 134/95 94 12/12/20 06:59 83 161/94 96 12/12/20 06:00 86 12/12/20 05:22 100 H 151/87 12/12/20 03:17 99.0 F 101 H 17 151/87 96 12/11/20 23:28 99.8 F H 105 H 17 134/85 95 12/11/20 22:00 82 12/11/20 21:38 88 147/100 12/11/20 19:04 98.6 F 88 16 147/100 96 12/11/20 15:48 98.6 F 79 18 154/83 97 12/11/20 14:00 89 12/11/20 12:21 99.0 F 75 16 155/85 96 - Physical Examination General: No Apparent Distress HEENT: Positive: PERRL Neck: Positive: trachea midline Cardiac: Positive: Reg Rate and Rhythm Lungs: Positive: Decreased Breath Sounds Neuro: Positive: Grossly Intact Extremities: Absent: edema - Labs and Meds Comprehensive Metabolic Panel 12/12/20 Range/Units 04:19 Sodium 140 (137-145) mmol/L Potassium 3.8 (3.6-5.0) mmol/L Chloride 103.2 (98-107) mmol/L Carbon Dioxide 25 (22-30) mmol/L BUN 12 (9-20) mg/dL Creatinine 0.9 (0.8-1.3) mg/dL Glucose 67 L (75-100) mg/dL Calcium 9.1 (8.4-10.2) mg/dL
--- NOTE | 2020-12-12 13:17 | Discharge Summary ---
Providers - Providers Date of Admission: 12/10/20 18:29 Date of discharge: 12/12/20 Attending physician: RIKI SOTO 12/11/20 01:09 Consult to Physician [CONS] Routine Comment: Consulting Provider: SCOTT FISCHER Physician Instructions: Reason For Exam: Bradycardia 12/11/20 15:37 Physical Therapy Evaluation and Treat [CONS] Routine Comment: Reason For Exam: Syncope/evaluate and treat/DC needs Primary care physician: REEL BLADE BENDER FURNACE TENDER Hospitalization Condition: Stable Hospital course: --Symptomatic bradycardia; Patient had heart rate ranging between 49-59 intermittently since admission Patient was admitted with syncopal episode, not on any AV belgica blocking agents Closely monitor, cardiology consulted Follow echocardiogram --History of syncopal episode/autonomic dysfunction Versus marijuana related Fall precautions, syncope work-up in progress Follow carotid Doppler, echocardiogram Patient will be advised to follow neurologist as outpatient --Hypertension; moderate control Continue current antihypertensives, avoid beta-blockers --History of substance abuse/marijuana. Strongly advised to quit recreational drug use --DVT prophylaxis; Heparin We will closely monitor the patient and adjust management as needed Physical therapy evaluation and treatment Follow cardiology recommendations Possible discharge a.m. if stable Disposition: DC-01 TO HOME OR SELFCARE Time spent for discharge: 32 min Core Measure Documentation - Palliative Care Palliative Care/ Comfort Measures: Not Applicable - Core Measures Any of the following diagnoses?: none Exam - Constitutional Vitals: Temp Pulse Resp BP Pulse Ox 98.7 F 84 18 135/90 96 12/12/20 12:08 12/12/20 12:22 12/12/20 12:08 12/12/20 12:22 12/12/20 12:08 Plan Activity: advance as tolerated, fall precautions Diet: other (Cardiac diet) Additional Instructions: Advised not to use marijuana/recreational drugs. Fall precautions. Advised to see private neurologist per schedule Follow up with: DONOVAN REYES MD [Primary Care Provider] - 7 Days YANNA HERRERA MD [Staff Physician] - 7 Days SCOTT FISCHER MD [Staff Physician] - 7 Days Prescriptions: hydrALAZINE [Apresoline TAB] 25 mg PO BID #60 tablet NIFEdipine XL [Procardia Xl] 60 mg PO QDAY #30 tablet
[2020-12-12 14:24] VITALS: BP 156/97
== END 2020-12-12 14:47 | disposition home or self-care (01) ==
LOC: ED 16:10 → 4A 18:29
PROVIDERS: ADMIT Internal Medicine; ATTEND Internal Medicine
DX: G93.40 Encephalopathy, unspecified (principal); R00.1 Bradycardia, unspecified; F45.8 Other somatoform disorders; I10 Essential (primary) hypertension; F12.90 Cannabis use, unspecified, uncomplicated; M19.90 Unspecified osteoarthritis, unspecified site; Z79.899 Other long term (current) drug therapy
CPT/HCPCS: 36415; 70450; 71045; 80048; 80053; 80307; 81001; 82962; 83036; 83735; 84484; 85025; 85610; 93005; 93306; 93880; 96372; 96374; 96375; 96376; 97162; 99291; G0378; J0360; J1644; J7040; 80320; G0480